=== PATIENT | female | born 1985 ===

== ENCOUNTER 2016-08-24 19:25 | Emergency (ER) | payer MEDICAID ==
[2016-08-24 19:31] VITALS: RESP 17; TEMP 98.3; O2SAT 100
--- NOTE | 2016-08-24 20:27 | ED PDOC ---
HPI: Headache Time Seen by Provider: 08/24/16 20:20 Chief Complaint (Nursing): Headache Chief Complaint (Provider): Headache History Per: Patient History/Exam Limitations: no limitations Onset/Duration Of Symptoms: Hrs (earlier today, resolved ) Current Symptoms Are (Timing): Better Preceeding Symptoms: Other (elevated blood pressure) Additional Complaint(s): Kathy Krueger is a 31 year old female, with a past medical history inclusive of HTN (compliant with Losartan, Amlodipine), who presents to the ED on 08/24/16 , via EMS and accompanied by a friend, for the evaluation of a headache that she had experienced earlier this afternoon, since resolved and not considered worst of life. Patient also reports having experienced some mild chest pain concurrently with headache, also since resolved, further stating that she believes her blood pressure may have been elevated at symptom onset. Denies any additional complaints. Has medicated with Advil and her antihypertensive medications with relief. PMD: Leanne Avitia Past Medical History Reviewed: Historical Data, Nursing Documentation, Vital Signs Vital Signs: Last Vital Signs Temp 98.3 F 08/24/16 19:27 Pulse 78 08/24/16 19:27 Resp 17 08/24/16 19:27 BP 194/114 H 08/24/16 19:27 Pulse Ox 100 08/24/16 19:27 - Medical History PMH: Anemia (transfusion 4 months ago), HTN Denies: Diabetes - Surgical History Surgical History: No Surg Hx - Family History Family History: States: Hypertension - Social History Ex-Smoker (has not smoked in the last 12 months): Yes Alcohol: None Drugs: Denies - Immunization History Hx Tetanus Toxoid Vaccination: No Hx Influenza Vaccination: No Hx Pneumococcal Vaccination: No - Home Medications Home Medications: Ambulatory Orders Medication Instructions Recorded Unobtainable [Unobtainable] 06/23/13 - Allergies Allergies/Adverse Reactions: Allergies Allergy/AdvReac Type Severity Reaction Status Date / Time No Known Allergies Allergy Unverified 06/23/13 15:29 Review of Systems Eyes: Negative for: Vision Change Cardiovascular: Positive for: Chest Pain (since resolved) Gastrointestinal: Negative for: Nausea, Vomiting Neurological: Positive for: Headache (not worst of life, resolved) Physical Exam - Reviewed Nursing Documentation Reviewed: Yes Vital Signs Reviewed: Yes - Physical Exam Appears: Positive for: Non-toxic, No Acute Distress Head Exam: Positive for: ATRAUMATIC, NORMOCEPHALIC Skin: Positive for: Normal Color, Warm, Dry Eye Exam: Positive for: Normal appearance, EOMI, PERRL Neck: Positive for: Normal, Painless ROM, Supple Cardiovascular/Chest: Positive for: Regular Rate, Rhythm. Negative for: Murmur Respiratory: Positive for: Normal Breath Sounds. Negative for: Respiratory Distress Neurologic/Psych: Positive for: Alert, Oriented - ECG ECG: Positive for: Interpreted By Me, Viewed By Me ECG Rhythm: Positive for: Normal QRS, Sinus Rhythm. Negative for: ST/T Changes Rate: 60 O2 Sat by Pulse Oximetry: 100 (RA) Pulse Ox Interpretation: Normal Medical Decision Making Medical Decision Makin:20 Initial Impression: hypertension related headache, since resolved; chronic HTN with elevated blood pressure, improved Initial Plan: * EKG * reassess * EKG shows NSR at 60bpm with normal QRS and no ST/T changes. Scribe Attestation: Documented by Ileana Dinero, acting as a scribe for Daniel Perez MD. Provider Scribe Attestation: All medical record entries made by the Scribe were at my direction and personally dictated by me. I have reviewed the chart and agree that the record accurately reflects my personal performance of the history, physical exam, medical decision making, and the department course for this patient. I have also personally directed, reviewed, and agree with the discharge instructions and disposition. Disposition - Clinical Impression Clinical Impression: Headache, Hypertension - Patient ED Disposition Is Patient to be Admitted: No Counseled Patient/Family Regarding: Studies Performed, Diagnosis - Disposition Referrals: [facility] [Outside] Disposition: Routine/Home Disposition Time: 21:02 Condition: GOOD Additional Instructions: Take your medications as instructed. Follow up with your PCP in 2-3 days. Instructions: Hypertension (ED)
[2016-08-24 20:47] VITALS: PULSE 60
[2016-08-24 20:53] VITALS: BP 160/108
--- NOTE | 2016-08-25 15:04 | CARD ---
APPROVED REPORT EKG Measurement Heart [id number] <Conclusion> Normal sinus rhythm Possible Left atrial enlargement Borderline ECG
== END 2016-08-24 21:14 | disposition home or self-care (01) ==
LOC: H.ER 19:25
DX: R51 Headache (principal); I10 Essential (primary) hypertension; Z87.891 Personal history of nicotine dependence